=== PATIENT | female | born 1965 | race Two or more races ===

== ENCOUNTER 2022-10-25 15:19 | Emergency (ER) | payer OTHER ==
[~2022-10-25] VITALS: Ht 154.9 cm; Wt 86.2 kg
== END 2022-10-25 18:51 | disposition home or self-care (01) ==
LOC: ER 15:19
DX: R53.1 Weakness (principal); R42 Dizziness and giddiness; R41.0 Disorientation, unspecified

== ENCOUNTER 2023-09-04 20:32 | Emergency (ER) | payer OTHER ==
[~2023-09-04] VITALS: Ht 154.9 cm; Wt 90.7 kg
== END 2023-09-04 22:49 | disposition home or self-care (01) ==
LOC: ER 20:32
DX: J06.9 Acute upper respiratory infection, unspecified (principal); Z20.822 Contact with and (suspected) exposure to COVID-19